=== PATIENT | male | born 1945 | race African-American/Black ===

== ENCOUNTER → 2019-03-09 | Emergency (ER) | payer OTHER ==
[~2019-03-09] MED LIST: Aspirin 325 MG TAB ONE; cefTRIAXone\\ROCEPHIN 2 GM VIAL ONE
--- NOTE | 2019-03-09 19:18 | RAD ---
Portable frontal chest radiograph: 03/09/2019 COMPARISON: None HISTORY: Chest pain FINDINGS: Lungs are clear. Heart and mediastinal contours appear within normal limits. Minimal linear density seen laterally within the mid left lung zone. IMPRESSION: No acute findings.
[2019-03-09 20:02] LABS: ALT (SGPT) 18 U/L (8-55); AST (SGOT) 24 U/L (5-34); Albumin 3.8 g/dL (3.4-4.8); Alkaline Phosphatase 50 U/L (40-150); Anion Gap 15 mmol/L (10-20); BUN (Urea Nitrogen) 16 mg/dL (8.4-25.7); Bilirubin, Total 0.6 mg/dL (0.2-1.2); Calc. Creatinine Clearance 0 mL/min (70-130); Calcium 8.6 mg/dL (7.8-10.44); Carbon Dioxide 25 mmol/L (23-31); Chloride 102 mmol/L (98-107); Estimated GFR-MDRD 50; Globulin 3.8 g/dL (2.4-3.5); Glucose 116 mg/dL (83-110); Lipase 9 U/L (8-78); Protein, Total 7.6 g/dL (5.8-8.1); Sodium 138 mmol/L (136-145)
[2019-03-09 20:54] LABS: Bilirubin Moderate (Negative); Blood, Urine Large (Negative); Clarity TURBID (Clear); Glucose, Urine (Dipstick) Negative (Negative); Leukocyte Large (Negative); Nitrite Positive (Negative); Protein, Urine (Dipstick) 300 mg/dL (Neg-Trace); Specific Gravity, Urine 1.023 (1.002-1.036); pH, Urine 6.5 (5.0-9.0)
[2019-03-09 20:55] LABS: Squamous Epithelial 0-3 HPF (0-3)
[2019-03-09 20:57] LABS: Pathc Cast-AUWi Flag 59.09 (0-2.49); Yeast-AUWi Flag 730.2 (0-25.0)
[2019-03-09 21:04] LABS: RBC/HPF GREATER THAN 50-TNTC HPF (0-3)
[2019-03-09 21:05] LABS: Bacteria/HPF 4+ HPF (None Seen); Hyaline Casts/LPF 4-6 HYALINE CAST LPF (0-3 Hyaline)
[2019-03-09 21:30] LABS: Hemoglobin 11.1 g/dL (14.0-18.0); Mean Corpuscular HGB CONC 33.3 g/dL (32.0-36.0); Mean Corpuscular Hemoglobin 30.5 pg (27.0-31.0); Mean Corpuscular Volume 91.6 fL (78.0-98.0); Platelet Count 171 thou/uL (130-400); RBC Distribution Width 12.4 % (11.5-14.5); Red Blood Cell (RBC) Count 3.64 mill/uL (4.70-6.10); White Blood Cell (WBC) Count 9.4 thou/uL (4.8-10.8)
[2019-03-09 21:41] LABS: Band 13 % (5-11); Eosinophils 1 % (0-10); Lymphocytes 8 % (21-51); MDiff Complete? YES; Monocytes 9 % (0-10); Neutrophil 69 % (42-75); Platelet Morphology Comment Appears Adequate
== END ==
LOC: ERS 17:55
DX: N39.0 Urinary tract infection, site not specified (principal); R07.9 Chest pain, unspecified; E78.5 Hyperlipidemia, unspecified; E11.9 Type 2 diabetes mellitus without complications; F31.9 Bipolar disorder, unspecified; Z87.891 Personal history of nicotine dependence
CPT/HCPCS: 36415; 71045; 80053; 81003; 81015; 83690; 83880; 84484; 85025; 87070; 87077; 87086; 87186; 93005; 96365; J0696